=== PATIENT | male | born 1935 | race Caucasian/White ===

== ENCOUNTER 2024-12-21 22:07 | Emergency (ER) | payer MEDICARE ==
[~2024-12-21] VITALS: Ht 177.8 cm; Wt 68.2 kg
[2024-12-21] MEDS ORDERED: LEVO50TA11 PO (22:34)
[2024-12-21] MEDS ORDERED: LATA2.5D7 OU (22:46)
[2024-12-21] MEDS ORDERED: DORZ10DR10 OU (22:46)
[2024-12-21 22:58] LABS: PLATELET COUNT (AUTO) 147 K/uL (150-450); RED BLOOD CELL COUNT(AUTO) 3.94 MIL/uL (4.50-5.90); RED CELL DISTRIBUTION WIDTH 12.9 % (11.5-14.5); WHITE BLOOD COUNT (AUTO) 10.9 K/uL (4.5-11.0)
[2024-12-21] MEDS: ONDANSETRON HCL 4 MG/2 ML VIAL IVP ONE (23:00)
[2024-12-21] MEDS: SODIUM CHLORIDE 0.9% 1,000 ML IV ONE (23:00)
[2024-12-21 23:01] LABS: CALCIUM, TOTAL 8.5 mg/dL (8.8-10.5); CREATININE 1.21 mg/dL (0.60-1.30); GLOMERULAR FILTR. RATE CALC 57 mL/min (>60); GLUCOSE,RANDOM 127 mg/dL (70-110); SODIUM SERUM 137 mmol/L (136-145); UREA NITROGEN, BLOOD 19 mg/dL (7-18)
[2024-12-21 23:11] LABS: TROPONIN I-HIGH SENSITIVITY 7 ng/L (<76)
[2024-12-22] MEDS: SODIUM PHOSPHATE,MONO-DIBASIC 133 ML ENEMA PR ONE (03:07)
[2024-12-22] MEDS: MINERAL OIL 133 ML ENEMA PR ONE (03:14)
[2024-12-22 04:59] VITALS: TEMP 97.9
[2024-12-22 07:10] VITALS: BP 129/70; PULSE 71; RESP 17; O2SAT 97
== END 2024-12-22 08:28 | disposition home or self-care (01) ==
LOC: EMS 22:07
DX: K59.00 Constipation, unspecified (principal); R10.32 Left lower quadrant pain; E03.9 Hypothyroidism, unspecified; Z79.890 Hormone replacement therapy
CPT/HCPCS: 71045; 74176; 80048; 83690; 84484; 85025; 99285; 36415-L1; 36415-TC

== ENCOUNTER 2024-12-26 10:03 | Emergency (ER) | payer MEDICARE ==
[~2024-12-26] VITALS: Ht 177.8 cm; Wt 68.2 kg
[~2024-12-26 10:03] MED LIST: DORZ10DR10 OU; LATA2.5D7 OU; LEVO50TA11 PO
[2024-12-26 10:20] VITALS: TEMP 97.3
[2024-12-26 13:03] LABS: PLATELET COUNT (AUTO) 170 K/uL (150-450); RED BLOOD CELL COUNT(AUTO) 4.13 MIL/uL (4.50-5.90); RED CELL DISTRIBUTION WIDTH 12.8 % (11.5-14.5); WHITE BLOOD COUNT (AUTO) 5.6 K/uL (4.5-11.0)
[2024-12-26 13:14] LABS: CALCIUM, TOTAL 8.6 mg/dL (8.8-10.5); CREATININE 1.00 mg/dL (0.60-1.30); GLOMERULAR FILTR. RATE CALC > 60 mL/min (>60); GLUCOSE,RANDOM 94 mg/dL (70-110); SODIUM SERUM 140 mmol/L (136-145); UREA NITROGEN, BLOOD 15 mg/dL (7-18)
[2024-12-26 13:17] LABS: ASPARTATE AMINOTRANSFERASE 29.0 U/L (15-37); TOTAL PROTEIN, SERUM 7.5 g/dL (6.4-8.2)
[2024-12-26] MEDS ORDERED: IOHEXOL 350 MG/ML 100 ML VIAL ONE ×3 (14:16→14:31)
[2024-12-26] MEDS ORDERED: SODIUM CHLORIDE 0.9% 100 ML ONE (14:29)
[2024-12-26] MEDS: DOCUSATE SODIUM 100 MG CAPSULE PO ONE (16:27)
[2024-12-26] MEDS ORDERED: DOCU-385 PO (16:27)
[2024-12-26] MEDS: SODIUM PHOSPHATE,MONO-DIBASIC 133 ML ENEMA PR ONE (16:27)
[2024-12-26 17:40] VITALS: BP 130/80; PULSE 65; RESP 18; O2SAT 100
== END 2024-12-26 17:52 | disposition home or self-care (01) ==
LOC: EMS 10:18
DX: K59.00 Constipation, unspecified (principal); E03.9 Hypothyroidism, unspecified; Z79.890 Hormone replacement therapy
CPT/HCPCS: 99285; 74177; 80048; 80076; 83690; 85025; 36415; Q9967; J7050